=== PATIENT | male | born 1950 | race Caucasian/White ===

== ENCOUNTER → 2018-08-14 12:45 | Outpatient (CLI) | payer MEDICARE, SELFPAY ==
--- NOTE | 2018-08-21 17:09 | PM.PFT.1 ---
Pulmonary Function Test Referral & Results Date Patient Seen: 08/14/18 Requesting provider: Matt Sepulveda Indication: Cough Results: The spirometry demonstrates an FVC of 4.26 L which is 96% of predicted. The FEV1 was measured at 2.53 L which is 77% of predicted. The FEV1/FVC ratio was 59 which is 80% of predicted. Following the administration of bronchodilator there was 50% improvement in FEV1 and a 48 % improvement in FEF 25-75%. Lung volumes show an SVC of 3.85 L which is 85% of predicted. The diffusing capacity was measured at 31.40 which is 101% of predicted. The maximum voluntary ventilation was normal Interpretation: This study demonstrates mild obstructive lung disease based on reduction in FEV1 and FEV1/FVC ratio. There is some limited evidence of benefit following bronchodilator based on improvement in FEV1 and FEF 25-75% There may also be mild restrictive lung disease present based on slight reduction in lung volumes
== END ==
PROVIDERS: PCP Specialist; Visit Provider Specialist
DX: R05 Cough (principal)
CPT/HCPCS: 94060; 94726; 94729

== ENCOUNTER 2019-02-28 10:50 | Emergency (ER) | payer MEDICARE, SELFPAY ==
[2019-02-28 11:00] VITALS: BP 153/83; PULSE 86; RESP 19; TEMP 36.5; O2SAT 94; BMI 29.5
--- NOTE | 2019-02-28 11:14 | DI.RAD.S_ITS ---
PROCEDURE: XR CHEST 2V INDICATIONS: cough x 3-4 weeks TECHNIQUE: 2 views of the chest were acquired. COMPARISON: [facility], , THORACIC SPINE 2 VIEWS, 07/23/2014, 0:47. FINDINGS: Surgical changes and devices: None. Lungs and pleura: There are confluent left lower lobe airspace opacities consistent with consolidation. No pleural effusions or pneumothorax. Mediastinum: Mediastinal contours are normal. Heart size is normal. Bones and chest wall: No suspicious bony abnormalities. Soft tissues appear unremarkable. IMPRESSION: 1. Left lower lobe consolidation compatible with pneumonia given clinical history. Dictated by: Eriberto Avila M.D. on 02/28/2019 at 10:45 Approved by: Eriberto Avila M.D. on 02/28/2019 at 10:46
--- NOTE | 2019-02-28 11:26 | ED.URI ---
HPI - URI/Sore Throat <FESTUS Delgadillo - Last Filed: 02/28/19 13:45> General Chief Complaint: Upper Respiratory Symptoms Stated Complaint: SEVERE COUGH/ LOOSING VOICE 3X Time Seen by Provider: 02/28/19 11:03 Source: patient and family Mode of arrival: Family Vehicle Limitations: no limitations History of Present Illness HPI Narrative: The patient is a 69-year-old male nonsmoker with history of possible asthma who presents with a chief complaint of a cough times 3-4 weeks. He states that he had a very bad cough for several weeks last year, but it went away prior to a pulmonology appointment. He has been using DayQuil, NyQuil and Robitussin. He states he had a fever of 102 headache and chills on Friday. He is concerned about pneumonia as well as the flu as they have a 5-month-old baby in the house. He denies any abdominal pain, chest pain nausea vomiting or diarrhea. Related Data Previous Rx's Medication Instructions Recorded albuterol sulfate 2 puff INHALATION Q4-6H PRN #18 02/28/19 gram benzonatate [Tessalon Perles] 100 mg PO BID-TID PRN #20 cap 02/28/19 doxycycline hyclate 100 mg PO BID #20 cap 02/28/19 prednisone 50 mg PO DAILY #5 tab 02/28/19 Review of Systems <RAHEEM DelgadilloFORMERLY [facility] - Last Filed: 02/28/19 13:45> Review of Systems Narrative: GENERAL: See HPI HEENT: Denies sinus pain, ear pain, sore throat, difficulty swallowing, dizziness. RESPIRATORY: See HPI CARDIOVASCULAR: Denies chest pain, palpitations, orthopnea, edema, GASTROINTESTINAL: Denies nausea, vomiting, abdominal pain, diarrhea, constipation, melena. : Denies dysuria, frequency, incontinence, hematuria, urinary retention. MUSCULOSKELETAL: denies weakness, joint pain, or bony pain SKIN: Denies rash, skin lesions, or other NEUROLOGIC: Denies weakness, headache, numbness, change in speech, confusion, seizures, incoordination. PSYCHIATRIC: No concerning psychosocial issues. 12 point review of systems is negative except for those stated above Patient History <FESTUS Delgadillo - Last Filed: 02/28/19 13:45> Social History Smoking Status: Never smoker Smoking Status: Never smoker Substance Use Type: does not use Exam <VIRGILIO Delgadillo - Last Filed: 02/28/19 13:45> Narrative Exam Narrative: GENERAL: This is a well-nourished, well-developed patient, in no acute distress with at bedside HEAD: Atraumatic. Normocephalic. No temporal or scalp tenderness. EYES: Pupils equal round and reactive. Extraocular motions intact. No scleral icterus. No injection or drainage. ENT: Nose without bleeding, purulent drainage or septal hematoma. Throat without erythema, tonsillar hypertrophy or exudate. Uvula midline. Airway patent. Bilateral TMs pearly juárez NECK: Trachea midline. No JVD or lymphadenopathy. Supple, nontender, no meningeal signs. CARDIOVASCULAR: Regular rate and rhythm without murmurs, gallops, or rubs. RESPIRATORY: Diffuse expiratory wheeze auscultation. Crackles left lower lobe noted. Otherwise no rales or rhonchi. Cough on exam. No increased respiratory effort. No accessory muscle use, stridor, no retractions speaking full sentences GASTROINTESTINAL: Abdomen soft, non-tender, nondistended. No hepato-splenomegaly, or palpable masses. No guarding. Active bowel sounds all 4 quadrants EXTREMITIES: No clubbing, cyanosis, or edema. No joint tenderness, effusion, or edema noted. BACK: Nontender without deformity or crepitance. No flank tenderness. NEURO: AOx3. SKIN: No rash or erythema visible skin Initial Vital Signs Initial Vital Signs: Vital Signs Temperature 97.7 F 02/28/19 11:00 Pulse Rate 86 02/28/19 11:00 Respiratory Rate 02/28/19 11:00 Blood Pressure 153/83 H 02/28/19 11:00 Pulse Oximetry 94 02/28/19 11:00 <Freddy Kellogg DO - Last Filed: 03/01/19 08:42> Initial Vital Signs Initial Vital Signs: Vital Signs Temperature 97.7 F 02/28/19 11:00 Pulse Rate 86 02/28/19 11:00 Respiratory Rate 02/28/19 11:00 Blood Pressure 153/83 H 02/28/19 11:00 Pulse Oximetry 94 02/28/19 11:00 Course <VIRGILIO Delgadillo - Last Filed: 02/28/19 13:45> Orders Ordered: Discontinued Medications Albuterol/Ipratropium (Duoneb) 3 ml INH NOW ONE Stop: 02/28/19 11:28 Last Admin: 02/28/19 11:29 Dose: 3 ml Documented by: BRITTANY Vital Signs Vital signs: Vital Signs - 8 hr 02/28/19 11:00 02/28/19 11:30 02/28/19 12:30 Temperature 97.7 F Pulse Rate 86 84 Respiratory Rate 19 18 Blood Pressure 153/83 H Pulse Oximetry 94 99 99 02/28/19 12:47 Temperature Pulse Rate 84 Respiratory Rate 18 Blood Pressure 122/72 Pulse Oximetry 92 <Freddy Kellogg DO - Last Filed: 03/01/19 08:42> Orders Ordered: Discontinued Medications Albuterol/Ipratropium (Duoneb) 3 ml INH NOW ONE Stop: 02/28/19 11:28 Last Admin: 02/28/19 11:29 Dose: 3 ml Documented by: BRITTANY Vital Signs Vital signs: Vital Signs - 8 hr 02/28/19 11:00 02/28/19 11:30 02/28/19 12:30 Temperature 97.7 F Pulse Rate 86 84 Respiratory Rate 19 18 Blood Pressure 153/83 H Pulse Oximetry 94 99 99 02/28/19 12:47 Temperature Pulse Rate 84 Respiratory Rate 18 Blood Pressure 122/72 Pulse Oximetry 92 MDM - URI/Sore Throat <VIRGILIO Delgadillo - Last Filed: 02/28/19 13:45> Lab Data Labs: Lab Results 02/28/19 Range/Units 11:20 Influenza A (RT-PCR) Flu a negative (NEGATIVE) Influenza B (RT-PCR) Flu b negative (NEGATIVE) Imaging Data Chest x-ray: Radiologist's impression: [address] [address] XRay Report Signed Patient: Lester Casiano JACKY#: [id number] : 2Acct:[id number] Age/Sex: 69 / MDate of Service: 02/28/19 Loc: ED Accession Number: [id number] Procedure: XR chest 2V Ordering Provider: Lily Singh PROCEDURE: XR CHEST 2V INDICATIONS: cough x 3-4 weeks TECHNIQUE: 2 views of the chest were acquired. COMPARISON: [facility], , THORACIC SPINE 2 VIEWS, 07/23/2014, 0:47. FINDINGS: Surgical changes and devices: None. Lungs and pleura: There are confluent left lower lobe airspace opacities consistent with consolidation. No pleural effusions or pneumothorax. Mediastinum: Mediastinal contours are normal. Heart size is normal. Bones and chest wall: No suspicious bony abnormalities. Soft tissues appear unremarkable. IMPRESSION: 1. Left lower lobe consolidation compatible with pneumonia given clinical history. Dictated by: Eriberto Avila M.D. on 02/28/2019 at 10:45 Approved by: Eriberto Avila M.D. on 02/28/2019 at 10:46 MDM Narrative Medical decision making narrative: The patient is a 69-year-old male who presents with a chief complaint of cough for 3-4 weeks. He is not systemically ill on exam, is afebrile appears well and nontoxic. X-ray indicates pneumonia on the left lower lobe, which correlates with his exam. I placed him on doxycycline given his history of possible asthma etcetera. He saw a respiratory therapist, who went over incentive spirometer etcetera. He was given a spacer for his inhaler. He was given a prescription of Tessalon Perles. Discussed at length the importance of follow-up with primary care provider as well as coming back to the ER for any acute concerns such as significant shortness of breath etc.. Patient has no questions or concerns upon discharge and states understanding of return precautions as well as follow-up care. <Freddy Kellogg DO - Last Filed: 03/01/19 08:42> Lab Data Labs: Lab Results 02/28/19 Range/Units 11:20 Influenza A (RT-PCR) Flu a negative (NEGATIVE) Influenza B (RT-PCR) Flu b negative (NEGATIVE) Discharge Plan Departure Patient Disposition: Home Clinical Impression: Pneumonia Qualifiers: Pneumonia type: due to unspecified organism Laterality: left Lung location: lower lobe of lung Qualified Code(s): J18.9 - Pneumonia, unspecified organism Discharge Date/Time: 02/28/19 12:50 Instructions: How to Use an Incentive Spirometer, DI for Pneumonia -- Adult Activity Restrictions/Additional Instructions: Thank you for trusting us with your care today I have started you on antibiotics for your pneumonia Please use your inhaler every 4-6 hours as needed with spacer I've given you prescription for Tessalon Perles which can help reduce her cough. Please continue [id number] measures, lemon and honey etc I've placed you in a burst of prednisone help decrease the inflammation in your lungs, which should also help with her cough. Be careful as this medication can make you feel ?wired,increase your appetite and increased your blood sugars. Please follow-up with primary care provider in the next few days Please come back to the emergency department for any acute concerns such as significant shortness of breath, chest pain concern of heart attack or stroke Prescriptions: New doxycycline hyclate 100 mg capsule 100 mg PO BID Qty: 20 RF: 0 benzonatate [Tessalon Perles] 100 mg capsule 100 mg PO BID-TID PRN (Reason: cough) Qty: 20 RF: 0 prednisone 50 mg tablet 50 mg PO DAILY Qty: 5 RF: 0 albuterol sulfate 90 mcg/actuation HFA aerosol inhaler 2 puff INHALATION Q4-6H PRN (Reason: shortness of breath or wheezing) Qty: 18 RF: 0 Referrals: Matt Sepulveda MD [Primary Care Provider] -
[2019-02-28] MEDS: ALBUTEROL/IPRATROPIUM 3 ML AMPUL INH (11:29)
[2019-02-28 11:30] VITALS: PULSE 84; RESP 18; O2SAT 99
[2019-02-28 12:00] LABS: Influenza A - CEPHEID Flu A NEGATIVE (NEGATIVE); Influenza B - CEPHEID Flu B NEGATIVE (NEGATIVE)
[2019-02-28 12:30] VITALS: O2SAT 99
[2019-02-28 12:47] VITALS: BP 122/72; PULSE 84; RESP 18; O2SAT 92
== END 2019-02-28 12:50 | disposition home or self-care (01) ==
PROVIDERS: Emergency Provider Nurse Practitioner Family; PCP Specialist
DX: J18.9 Pneumonia, unspecified organism (principal)
CPT/HCPCS: 71046; 87502; 94640; 99283

== ENCOUNTER → 2019-03-31 10:05 | Outpatient (CLI) | payer MEDICARE, SELFPAY ==
--- NOTE | 2019-03-31 | DI.RAD.S_ITS ---
PROCEDURE: XR CHEST 2V INDICATIONS: pnuemonia f/u TECHNIQUE: 2 views of the chest were acquired. COMPARISON: [facility], CR, XR CHEST 2V, 02/28/2019, 11:32. FINDINGS: Surgical changes and devices: None. Lungs and pleura: Lungs are almost completely clear of the pneumonia pattern previously present at the left lung base. Mild creatinine remains in that area. A central mass lesion is not found. Lung volumes are large and COPD would be suspected. No pleural effusions or pneumothorax. Mediastinum: Mediastinal contours are normal. Heart size is normal. Bones and chest wall: No suspicious bony abnormalities. Soft tissues appear unremarkable. IMPRESSION: Large lung volumes, possible COPD. Mild residual alveolar infiltration remains at the medial left lung base. Given likelihood of prior smoking history repeat followup chest plain films to resolution at the left lung base is recommended. Followup in 4 weeks should be obtained and if a abnormality in this area persists contrast-enhanced CT scanning should be obtained. Dictated by: Shaheen Newman M.D. on 03/31/2019 at 11:08 Approved by: Shaheen Newman M.D. on 03/31/2019 at 11:10
== END ==
PROVIDERS: Visit Provider Internal Medicine
DX: J18.9 Pneumonia, unspecified organism (principal)
CPT/HCPCS: 71046

== ENCOUNTER → 2019-05-06 09:01 | Outpatient (CLI) | payer MEDICARE, SELFPAY ==
--- NOTE | 2019-05-06 | DI.RAD.S_ITS ---
PROCEDURE: XR CHEST 2V INDICATIONS: PNEUMONIA TECHNIQUE: 2 views of the chest were acquired. COMPARISON: [facility], CR, XR CHEST 2V, 02/28/2019, 11:32. [facility], CR, XR CHEST 2V, 03/31/2019, 10:09. FINDINGS: Surgical changes and devices: None. Lungs and pleura: Hyperinflation suggesting COPD. Left lower lobe infiltrate has nearly resolved. Lungs are clear. No pleural effusions or pneumothorax. Mediastinum: Mediastinal contours are normal. Heart size is normal. Bones and chest wall: No suspicious bony abnormalities. Soft tissues appear unremarkable. IMPRESSION: Near resolution of left lower pneumonia. Dictated by: Tanya Gtz M.D. on 05/06/2019 at 11:23 Approved by: Tanya Gtz M.D. on 05/06/2019 at 11:25
== END ==
PROVIDERS: PCP Internal Medicine; Referring Provider Internal Medicine; Visit Provider Internal Medicine
DX: J18.9 Pneumonia, unspecified organism (principal)
CPT/HCPCS: 71046

== ENCOUNTER → 2019-05-21 09:29 | Outpatient (CLI) | payer MEDICARE, SELFPAY ==
--- NOTE | 2019-05-21 | DI.CT.S_ITS ---
PROCEDURE: CT CHEST WO CON INDICATIONS: nonspecific abnormal finding of lung field TECHNIQUE: Noncontrast 5 mm thick sections acquired from the pulmonary apices to the posterior costophrenic angles. 1 mm lung window, 5 mm thick coronal and sagittal and 7 mm axial MIP reformats were then acquired. For radiation dose reduction, the following was used: automated exposure control, adjustment of mA and/or kV according to patient size. COMPARISON: [facility], CR, XR CHEST 2V, 02/28/2019, 11:32. [facility], CR, XR CHEST 2V, 03/31/2019, 10:09. [facility], CR, XR CHEST 2V, 05/06/2019, 9:01. FINDINGS: Image quality: Excellent. Lungs and pleura: Scattered subsegmental atelectasis and/or scarring. No focal consolidation. 2 mm ill-defined right middle lobe pulmonary nodule, technically non-specific. Minimal right middle lobe bronchiectasis. Airway thickening in keeping with nonspecific bronchitis and/or reactive airways disease. No pleural effusions or pneumothorax. Central and peripheral airways are patent and normal in caliber. Mediastinum: Heart size is normal. No pericardial effusion. No mediastinal adenopathy by size criteria. Thoracic aorta and central pulmonary arteries are normal in size. Esophagus is normal in caliber. No hiatal hernia. Bones and chest wall: No suspicious bony lesions. No vertebral body compression fractures. No axillary or supraclavicular adenopathy by size criteria. Thyroid gland negative. Abdomen: Visualized upper abdominal solid organs and bowel loops appear normal in the absence of contrast. IMPRESSION: Scattered scarring and atelectasis. Mild residual left basilar opacity probably resolving infection/inflammation. Continued surveillance could be performed with chest radiographs to document complete resolution as clinically necessary. No focal consolidation Nonspecific 2 mm right middle lobe pulmonary nodule. This could be followed up with a one year interval chest CT to exclude early metastatic or malignant possibilities Airway thickening in keeping with nonspecific bronchitis and/or reactive airways disease. Dictated by: Tae Abbott M.D. on 05/21/2019 at 15:43 Approved by: Tae Abbott M.D. on 05/21/2019 at 15:51
== END ==
PROVIDERS: PCP Internal Medicine; Referring Provider Internal Medicine; Visit Provider Internal Medicine
DX: R91.8 Other nonspecific abnormal finding of lung field (principal); J18.9 Pneumonia, unspecified organism
CPT/HCPCS: 71250

== ENCOUNTER → 2020-05-05 09:30 | Outpatient (CLI) | payer MEDICARE, SELFPAY ==
[2020-05-05 11:44] LABS: COVID19 -Nasal RAPID Negative (Negative)
== END ==
PROVIDERS: PCP Internal Medicine; Visit Provider Surgery
DX: Z01.812 Encounter for preprocedural laboratory examination (principal); Z20.822 Contact with and (suspected) exposure to COVID-19
CPT/HCPCS: 87635; C9803

== ENCOUNTER 2020-05-08 08:54 | Day surgery (SDC) | payer MEDICARE, OTHER, SELFPAY ==
[2020-05-08] MEDS: LACTATED RINGERS 1,000 ML 200 ML IV (09:19)
[2020-05-08 09:22] VITALS: BP 109/76; PULSE 95; RESP 16; TEMP 36.4; O2SAT 97; BMI 31.0
--- NOTE | 2020-05-08 10:12 | P.HP_ITS ---
History of Present Illness History of Present Illness Date Patient Seen: 05/08/20 Time Patient Seen: 10:12 Chief complaint: MTC Narrative: The patient presents for colorectal sreening. Most recent colonoscopy was normal 5 years ago. No personal history of colon cancer, his mother had colon cancer. On further history denies any recent gastrointestinal symptoms. No nausea, vomiting, abdominal pain, loss of appetite, unexplained weight loss, change in bowel habits, diarrhea, constipation, melena, hematochezia, or bright red blood per rectum. Patient History Medical History Asthma Family & Social History Family History Mother Colon cancer Social History: household members spouse,children Tobacco & Substance use: Smoking Status Never smoker alcohol intake never Substance Use Type does not use Meds Home Medications and Allergies Home Medications Medication Instructions Recorded Confirmed Type albuterol sulfate 2 puff INHALATION Q4-6H PRN #18 02/28/19 05/08/20 Rx gram ibuprofen 400 mg PO Q6H PRN 05/08/20 05/08/20 History Allergies Allergy/AdvReac Type Severity Reaction Status Date / Time No Known Drug Allergies Allergy Verified 05/08/20 09:21 Review of Systems Review of Systems ROS: Yes All systems reviewed with the patient and are negative except as otherwise documented Exam Vital Signs (past 8 hours): - 05/08/20 09:22 Temperature 97.5 F L Pulse Rate 95 H Respiratory Rate 16 Blood Pressure 109/76 Pulse Oximetry 97 Oxygen Delivery Method Room Air Oxygen Flow Rate 0 Narrative Exam Narrative: General-no acute distress, well nourished adult male HEENT-moist mucous membranes, no scleral icterus Neck-supple, no lymphadenopathy Chest- non labored respirations, clear to auscultation bilaterally Cardiac-regular rate no peripheral edema Abdomen-soft, nontender, non distended Extremities-warm, well perfused Neurological-alert and oriented, no focal deficits Assessment & Plan Assessment & Plan narrative: The patient requires colorectal screening and colonoscopy is recommended. Technical details were discussed. Risks, benefits, alternatives explained. Risks including but not limited to myocardial infarction, aspiration, bleeding, pain, missed lesion, incomplete examination, n eed for further radiographic studies, colonic perforation, and need for major abdominal surgery were discussed. All questions were answered to their satisfaction, and they are in agreement with this plan.
[2020-05-08] MEDS: MIDAZOLAM 5 MG/5 ML VIAL IV (10:26)
[2020-05-08] MEDS: fentaNYL 250 MCG/5 ML INJ IV (10:26)
--- NOTE | 2020-05-08 10:37 | P.OP.ENDO_ITS ---
Operative Date/Time/Diagnoses Date of procedure: 05/08/20 Time of procedure: 10:37 Pre-op diagnosis: family history of colon cancer Post-op diagnosis: same Procedure & Clinicians Study performed: Colonoscopy Same procedure as scheduled: Yes Indications: 70-year-old man family history of colon cancer here for routine screening Surgeon: Angel Whittaker Procedure Notes Procedure in detail: Medications: Conscious sedation using 5mg IV midazolam a nd 150mcg IV of fentanyl The history and physical was performed/updated and the patient is ASA class is 2. The procedure was discussed in detail with the patient. Potential risks complications including infection, bleeding, missed diagnosis, perforation, need for surgery, and were explained. Their questions were answered and informed consent was obtained. Patient was brought to the procedure room and placed standard monitoring equipment. The patient's vital signs were monitored continuously throughout the entire procedure. Prior to starting time-out was performed. The patient was placed in the left lateral recumbent position. Procedural sedation was administered. Examination began with a thorough inspection of the perianal area there was no evidence of fissures, fistulae, external hemorrhoids or cutaneous malignancy. The colonoscopy scope was then placed into the anal canal and was advanced to the cecum, which was identified by the ileocecal valve, the appendiceal orifice and the confluence of the taenia. The scope was then slowly withdrawn examining colon thoroughly in all directions, irrigating it of any residual stool. No masses polyps Campuzano diverticulosis Grade 1 internal hemorrhoids The patient tolerated the procedure well. They will be discharged once criteria are met. The prep was of good/excellent quality. The withdrawl time was 7 minutes. The sedation time [id number]. Specimen(s): none sent Complications: none Impression: Normal colonoscopy Post-procedure Recommendations: Colonscopy in 5 years Disposition: same day surgery
[2020-05-08 10:40] VITALS: BP 101/63; PULSE 66; RESP 11; TEMP 35.6; O2SAT 93
[2020-05-08 10:44] VITALS: BP 98/63; PULSE 66; RESP 11; O2SAT 92
[2020-05-08 10:50] VITALS: BP 100/72; PULSE 73; RESP 10; O2SAT 97
[2020-05-08 10:55] VITALS: BP 101/72; PULSE 64; RESP 12; O2SAT 95
== END 2020-05-08 11:15 | disposition home or self-care (01) ==
PROVIDERS: PCP Family Medicine; Referring Provider Family Medicine; Visit Provider Surgery
PROC: 0DJD8ZZ Inspection of Lower Intestinal Tract, Via Natural or Artificial Opening Endoscopic (ICD-10-PCS; CPT 45378; principal; 2020-05-08 10:00)
DX: Z12.11 Encounter for screening for malignant neoplasm of colon (principal); Z80.0 Family history of malignant neoplasm of digestive organs; K64.0 First degree hemorrhoids; K57.30 Diverticulosis of large intestine without perforation or abscess without bleeding
CPT/HCPCS: G0105; 99152; J2250; J3010